=== PATIENT | female | born 1955 | race Caucasian/White ===

== ENCOUNTER 2016-09-17 23:58 | Inpatient (IN) | payer OTHER ==
[~2016-09-17] VITALS: Ht 152.4 cm; Wt 70.4 kg
--- NOTE | ~2016-09-17 | H ---
[facility] [place] [address] HISTORY AND PHYSICAL Name: ANDREA MARTE Room #: 409-P ADM IN M.R.#: [id number] Admission: 09/18/16 Attend Phys: Sheila Cabrera MD Discharge: Date of : 59 Report #: [id number] THIS REPORT FOR: //name// CC: Sheila Cabrera DATE OF SERVICE: 09/18/2016 CHIEF COMPLAINT: Intractable nausea and vomiting. HISTORY OF PRESENT ILLNESS: The patient is a 60-year-old female who resides within the secure unit at [facility]. She is ambulatory at baseline, but has chronic back pain requiring MS Contin 60 mg twice a day. Nursing staff reports that there were issues with her narcotics and had not received it for a day. On the day of admission, she reportedly had intractable nausea and vomiting and severe back pain. She was brought to [facility] Emergency Room for evaluation. Workup revealed partial small-bowel obstruction on CT of abdomen. She was admitted for further medical management. PAST MEDICAL HISTORY: Seizure disorder, gastroesophageal reflux disease without esophagitis, malignant neoplasm of the brain, status post surgical removal, chronic pain syndrome due to history of compression fractures involving T12, L1, L2 and dementia. ALLERGIES: No known drug allergies. MEDICATIONS: Colace 100 mg daily, dexamethasone 1 mg daily, diclofenac 50 mg every 8 hours as needed, famotidine 20 mg daily, Keppra 1000 mg b.i.d., Klonopin 1 mg every 12 hours, lacosamide 100 mg b.i.d., multivitamin 1 tablet daily, Namenda 10 mg b.i.d., oxycodone 5 mg q. 6 hours p.r.n., Dilantin 100 mg b.i.d., Risperdal 0.25 mg daily and 0.5 mg at bedtime, Tylenol 500 mg every 12 hours as needed, Zoloft 25 mg daily and MS Contin 60 mg q. 12 hours. FAMILY HISTORY: Noncontributory. SOCIAL HISTORY: The patient resides at [facility] within the secure unit. She does not use tobacco or alcohol. REVIEW OF SYSTEMS: GENERAL: The patient is forgetful. Needs assistance with activities of daily living, able to ambulate and feed herself. HEENT: Negative. CARDIAC: Negative. PULMONARY: Negative. GASTROINTESTINAL: As per history of present illness. GENITOURINARY: At times incontinent. [address] [address] HISTORY AND PHYSICAL Name: ANDREA MARTE Room #: 409-P [facility] IN [facility]#: [id number] Admission: 09/18/16 Attend Phys: Sheila Cabrera MD Discharge: Date of : 59 Report #: [id number] MUSCULOSKELETAL: Ambulates independently. LYMPHATICS: Negative. NEUROLOGIC: Forgetful due to underlying dementia. PHYSICAL EXAMINATION: GENERAL: The patient is a pleasant female lying in bed in no apparent distress and denies nausea at this time. VITAL SIGNS: Reveal temperature of 98.7, pulse of 79, respiratory rate 16, blood pressure 110/67. HEENT: Head is normocephalic, atraumatic. Pupils are equal and reactive. Extraocular muscles are intact. Oropharynx is moist. NECK: Supple. Trachea midline. LUNGS: Clear to auscultation. CARDIOVASCULAR: Regular rate and rhythm. ABDOMEN: Soft, nontender, nondistended with hypoactive bowel sound. SKIN: Warm and dry. Turgor adequate. LYMPHATICS: No cervical or axillary lymphadenopathy. NEUROLOGICAL: She is awake, alert, oriented only to self. Moves all extremities independent to command without focal neurologic deficit or lateralizing signs. LABORATORY DATA: Include potassium 2.9, glucose 131. WBC 13.1, hemoglobin 16.0 with normal differential. Urinalysis shows protein 1+, ketones trace, blood trace, WBC rare RBC none, bacteria few. RADIOGRAPHIC STUDIES: Include CT of abdomen and pelvis with findings of thickening of distal esophagus and hiatal hernia, which may represent chronic esophagitis, fluid filled bowel loops in upper left abdomen and fluid filled stomach. This may represent currently small-bowel obstruction or mild chronic ileus. Moderate amount of fluid is present in the colon. Findings represent mild enteritis, compression deformities at T12 and L1 levels appear chronic and there is large fat hernia through the canal is present in the right lower anterior abdominal wall. ASSESSMENT: 1. Partial small-bowel obstruction resulting in intractable nausea and vomiting. 2. Mild enteritis. 3. Gastroesophageal reflux disease with esophagitis. 4. Chronic back pain due to T12 and L1 compression fractures. 5. Seizure disorder. 6. Dementia. PLAN: Admission, continue IV fluids. We will start IV Flagyl and IV Cipro to treat underlying mild enteritis. She has had nausea and vomiting all morning. We will start her on clear liquids. We will resume MS Rock and all her other [facility] [address] [place] [address] HISTORY AND PHYSICAL Name: ANDREA MARTE Room #: 409-P [facility] IN .R.#: [id number] Admission: 09/18/16 Attend Phys: Sheila Cabrera MD Discharge: Date of : 59 Report #: [id number] home medications include those needed for seizures. We will also initiate DVT prophylaxis. By: [id number] Sheila Cabrera MD /nt
--- NOTE | ~2016-09-17 | EKG ---
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
--- NOTE | ~2016-09-17 | D ---
[facility] [address] [address] DISCHARGE SUMMARY Name: ANDREA MARTE Room #: 409-P [facility] IN .R.#: [id number] Admission: 09/18/16 Attend Phys: Sheila Cabrera MD Discharge: 09/20/16 Date of : 59 Report #: [id number] THIS REPORT FOR: //name// CC: [facility] Sheila Cabrera MD DATE OF SERVICE: 09/20/2016 SUMMARY HISTORY AND PHYSICAL: The patient is a 60-year-old female who reported intractable nausea and vomiting and severe back pain. There was a history of not having received her chronic MS Contin 60 mg twice daily. Nonetheless, she was brought to the Emergency Room where she was found to have a partial small-bowel obstruction on CT scan of the abdomen requiring admission for further evaluation and therapy. After more careful consideration, she appeared to have a mild enteritis and a partial small bowel obstruction. She had gastroesophageal reflux disease with enteritis. In addition, she has stable seizure disorder and dementia. Hospital Course: She was admitted with intravenous Flagyl and intravenous Cipro to treat her underlying enteritis and intravenous fluids to restore her fluid volume. Clear liquids were started in the next day, were tolerated well. Her MS Contin and other home medications including her seizure medications were all resumed. She did tolerate her clear liquids well, and on the second hospital day was already tolerating a soft diet. Her IV antibiotics were then switched to oral antibiotics, and the next hospital day, she was tolerating all of her medications well, drinking plenty of fluids, and also eating well. She had a normal bowel movement. Both she and her younger son were eager for her to return home. HOSPITAL COURSE: On the day prior to discharge, she was ambulatory around the hospital halls without difficulty. Her blood pressure at its lowest was 86/51 with a pulse of 61, respirations 16. Looking in previous hospital stay, she tolerated these low blood pressures well. She and her son wanted her to return to her shelter. She was not taking antihypertensive medications. Her potassium was 2.9 on admission and 3.7 after replacement at discharge. LABORATORY DATA: Her magnesium was low at 1.7 and normal at 1.9 at discharge. Her sodium was in the normal range, her creatinine was 0.6 on admission and 0.5 at discharge. Her BUN was 8 on admission and was 3 at discharge. Albumin was 4.[address] [address] DISCHARGE SUMMARY Name: ANDREA MARTE Room #: 409-P [facility] IN [facility]#: [id number] Admission: 09/18/16 Attend Phys: Sheila Cabrera MD Discharge: 09/20/16 Date of : 59 Report #: [id number] WBCs were 13,100 with a hemoglobin of 16.0 and segmented neutrophils of 79.8 on admission. At discharge, her WBCs had dropped sequentially to 6300, hemoglobin had dropped to 13.1 showing a response to her antibiotics as well as the effect of rehydration. Urinalysis showed a trace of ketones and blood with a few bacteria. CT scan of the abdomen and pelvis showed mild scarring in the lung bases, small cysts in both the right and the left kidneys without masses and without hydronephrosis, a moderate-sized hiatal hernia. The distal esophagus was mildly thickened, the stomach was fluid filled and the proximal small bowel loops were fluids filled as well most likely representing an ileus. A large hernia fat was present in the right inguinal canal without the presence of bowel loops. The hernia neck measured 14 mm. The uterus in average and ovaries were normal. . Chronic wedge deformities were present at T12 and L1. DISCHARGE DIAGNOSES: 1. Mild esophagitis and enteritis that responded to intravenous ciprofloxacin and metronidazole. 2. Dehydration with the hemoglobin dropping from 16 to 13.1 over the course of her hospital stay with rehydration. 3. Hiatal hernia. 4. A large fat hernia was present in right inguinal canal without the presence of bowel loops. Minimally displaced rib fractures were identified on the right side when compared with 04/26/2016. Left lower lobe atelectasis and pneumonia was unchanged from 04/26/2016 comparison film. The rib fractures were unchanged as well. 5. Dementia. 6. Stable seizure disorder. 7. Chronic back pain. 8. Chronic compression fractures confirmed at T12 and L1 by CT scanning. PLAN: The patient is discharged to return to [facility]. Her son is going to provide her with several large bottles of flavored Gatorade to continue oral rehydration after leaving the hospital. Ciprofloxacin 500 mg twice daily for 10 days and metronidazole 250 mg 4 times daily for 10 days. She is to continue her MS Contin 60 mg twice daily, oxycodone 5 mg every 6 hours as needed for breakthrough pain, docusate sodium 100 mg daily, multiple vitamins with iron, calcium and minerals, dexamethasone 1 mg daily, clonazepam 1 mg twice daily, phenytoin sodium 100 mg twice daily, Levetiracetam 1000 mg twice daily, memantine 10 mg twice daily, diclofenac 50 mg every 8 hours as needed for back pain, [id number] mg (Vimpat) twice daily, risperidone 0.25 mg once in the morning (the evening dose was discontinued), acetaminophen 500 mg every [address] [address] DISCHARGE SUMMARY Name: ANDREA MARTE Room #: 409-P [facility] IN M.R.#: [id number] Admission: 09/18/16 Attend Phys: Sheila Cabrera MD Discharge: 09/20/16 Date of : 59 Report #: [id number] hours, sertraline 25 mg once daily for depression. She is to get a CBC and a complete metabolic panel in 3-4 days. By: [id number] Alex Heredia MD /nt
[~2016-09-17 23:58] MED LIST: ACETAMINOPHEN325 M1 PO; APAP500 PO; CLONAZEPAM 1 MG1 M1 PO; COLACE100 MG PO; DEXAMETHASONE1 MG PO; DILANTIN100 MG PO; ESSENTIAL DAIL1 EACH PO; KEPPRA 500 MG500 M1 PO; KEPPRA1000 MG PO; LEVAQUIN 500 M500 M1 PO; MS CONTIN15 MG PO; NAMENDA 10 MG T10 MG PO; OXYCODONE HCL 55 MG PO; PEPCID20 MG PO; PHENYTEK300 MG PO; RISPERDAL1 MG/1 ML PO; RISPERIDONE0.5 MG PO; SERTRALINE HCL50 MG PO; VIMPAT50 MG PO
[2016-09-18 00:01] VITALS: BP 102/67
[2016-09-18 00:41] LABS: ABSOLUTE NEUTROPHILS 10.5 thou/uL (1.4-8.2); BASOPHILS 0.7 % (0.0-2.0); EOSINOPHILS 0.1 % (0.0-3.0); HEMATOCRIT 45.7 % (37.0-47.0); LYMPHOCYTES 12.5 % (24.0-44.0); MCH 32.3 pg (26.0-34.0); MCV 92.3 fL (80.0-100.0); MONOCYTES 6.9 % (1.0-8.0); PLATELET COUNT 185 thou/uL (150-400); POLYS 79.8 % (36.0-66.0); RBC 4.95 mil/uL (4.20-5.00); RDW 13.2 % (10.5-14.5); WBC 13.1 thou/uL (4.0-11.0)
[2016-09-18 00:46] LABS: MANUAL DIFF NO
[2016-09-18 00:56] LABS: ALBUMIN 4.3 g/dL (3.4-5.0); ALKALINE PHOSPHATASE 103 U/L (46-116); ANION GAP 13 mmol/L (7-16); BUN 8 mg/dL (7-18); CHLORIDE 97 mmol/L (98-107); CO2 26 mmol/L (21-32); CREATININE 0.6 mg/dL (0.6-1.0); GLUCOSE 131 mg/dL (74-106); SGOT 17 U/L (15-37); SGPT 35 U/L (30-65); SODIUM 136 mmol/L (136-145); TOTAL BILIRUBIN 0.6 mg/dL (<0.1-1.0); TOTAL PROTEIN 7.5 g/dL (6.4-8.2); TROPONIN-I < 0.04 ng/mL (<0.04-0.07)
[2016-09-18 01:00] LABS: CALCIUM 9.2 mg/dL (8.5-10.1)
[2016-09-18 01:01] LABS: POTASSIUM 2.9 mmol/L (3.5-5.1)
[2016-09-18] MEDS ORDERED: COLACE100 MG PO (01:08)
[2016-09-18] MEDS ORDERED: DICLOFENAC SODI25 MG (01:11)
[2016-09-18] MEDS ORDERED: VIMPAT100 MG (01:12)
[2016-09-18] MEDS ORDERED: [UNRECOGNIZED DRUG - OTHER] (01:13)
[2016-09-18] MEDS ORDERED: RISPERDAL0.5 MG (01:15)
[2016-09-18] MEDS ORDERED: RISPERDAL0.25 MG (01:15)
[2016-09-18] MEDS ORDERED: MAPAP500 MG (01:17)
[2016-09-18] MEDS ORDERED: ZOLOFT25 MG PO (01:18)
[2016-09-18 04:48] VITALS: BP 109/68
[2016-09-18 05:00] VITALS: BP 113/73
[2016-09-18 08:38] LABS: URINE BILIRUBIN NEGATIVE (Negative); URINE BLOOD TRACE (Negative); URINE COLOR YELLOW; URINE GLUCOSE-RANDOM* NEGATIVE (Negative); URINE KETONES TRACE (Negative); URINE LEUKOCYTES-REFLEX NEGATIVE (Negative); URINE PROTEIN (DIPSTICK) 1+ (Negative); URINE SPECIFIC GRAVITY <= 1.005 (1.003-1.035)
[2016-09-18 08:48] LABS: AMORPHOUS URATES Many /LPF (None Seen); CASTS None Seen /LPF (None Seen); SQUAMOUS 0-3 Few /LPF (0-3); URINE RBC None Seen /HPF (0-2); URINE WBC-REFLEX 0-5 Rare /HPF (0-5)
[2016-09-18 09:33] VITALS: BP 110/67
[2016-09-18 16:32] LABS: MAGNESIUM 1.7 mg/dL (1.8-2.4)
[2016-09-18 18:07] VITALS: BP 95/63
[2016-09-18 19:12] VITALS: BP 121/78
[2016-09-19 04:18] VITALS: BP 100/74
[2016-09-19 04:41] LABS: HEMATOCRIT 39.2 % (37.0-47.0); MCH 32.9 pg (26.0-34.0); MCV 94.1 fL (80.0-100.0); RBC 4.16 mil/uL (4.20-5.00); RDW 13.3 % (10.5-14.5); WBC 9.2 thou/uL (4.0-11.0)
[2016-09-19 04:53] LABS: HEMOGLOBIN 13.7 gm/dL (12.0-15.0)
[2016-09-19 04:57] LABS: CALCIUM 8.4 mg/dL (8.5-10.1); CREATININE 0.5 mg/dL (0.6-1.0)
[2016-09-19 08:55] VITALS: BP 86/44
[2016-09-19 15:57] VITALS: BP 84/57
[2016-09-19 19:50] VITALS: BP 80/43
[2016-09-20 05:02] LABS: HEMATOCRIT 37.6 % (37.0-47.0); HEMOGLOBIN 13.1 gm/dL (12.0-15.0); MCH 33.2 pg (26.0-34.0); MCHC 34.8 g/dL (28.0-37.0); MCV 95.2 fL (80.0-100.0); RBC 3.94 mil/uL (4.20-5.00); RDW 13.2 % (10.5-14.5); WBC 6.3 thou/uL (4.0-11.0)
[2016-09-20 05:15] LABS: CALCIUM 8.3 mg/dL (8.5-10.1); CREATININE 0.5 mg/dL (0.6-1.0); MAGNESIUM 1.9 mg/dL (1.8-2.4); POTASSIUM 3.7 mmol/L (3.5-5.1)
[2016-09-20 06:42] VITALS: BP 99/53
[2016-09-20 07:07] VITALS: BP 86/51
[2016-09-20] MEDS ORDERED: FLAGYL 250 MG250 MG PO (13:06)
[2016-09-20] MEDS ORDERED: CIPRO500 MG PO (13:06)
[2016-09-20] MEDS ORDERED: MS CONTIN60 MG PO (13:11)
== END 2016-09-20 14:10 | DRG 392 ==
LOC: ER 23:58 → EROBS 09-18 04:25 → 4N 09-18 05:01
PROVIDERS: Emergency Medicine; Internal Medicine
DX: K52.9 Noninfective gastroenteritis and colitis, unspecified (principal); K56.60 Unspecified intestinal obstruction; M48.55XA Collapsed vertebra, not elsewhere classified, thoracolumbar region, initial encounter for fracture; K21.0 Gastro-esophageal reflux disease with esophagitis; F03.90 Unspecified dementia, unspecified severity, without behavioral disturbance, psychotic disturbance, mood disturbance, and anxiety; G40.909 Epilepsy, unspecified, not intractable, without status epilepticus; E86.0 Dehydration; F17.210 Nicotine dependence, cigarettes, uncomplicated; G89.4 Chronic pain syndrome; Z87.81 Personal history of (healed) traumatic fracture; Z85.841 Personal history of malignant neoplasm of brain
CPT/HCPCS: 10790

== ENCOUNTER 2017-11-23 20:45 | Emergency (ER) | payer OTHER ==
[~2017-11-23] VITALS: Ht 167.6 cm; Wt 74.8 kg
[~2017-11-23 20:45] MED LIST changes: +CIPRO500 MG PO; +DICLOFENAC SODI25 MG; +FLAGYL 250 MG250 MG PO; +MAPAP500 MG; +MS CONTIN60 MG PO; +RISPERDAL0.25 MG; +RISPERDAL0.5 MG; +VIMPAT100 MG PO; +ZOLOFT25 MG PO; +[UNRECOGNIZED DRUG - OTHER]
[2017-11-23] MEDS ORDERED: CONSTULOSE10 GM/15 M PO (21:50)
[2017-11-23] MEDS ORDERED: MELATIN3 MG PO (21:50)
[2017-11-23] MEDS ORDERED: MOBIC15 MG PO (21:51)
[2017-11-23] MEDS ORDERED: ZANTAC 150MG T150 MG PO (21:52)
[2017-11-23] MEDS ORDERED: TYLENOL325 MG PO (21:53)
== END 2017-11-23 23:02 ==
LOC: ER 20:45
DX: M54.5 Low back pain (principal); G89.29 Other chronic pain; F17.210 Nicotine dependence, cigarettes, uncomplicated; Z87.311 Personal history of (healed) other pathological fracture; W18.39XA Other fall on same level, initial encounter; Y92.89 Other specified places as the place of occurrence of the external cause; Y93.89 Activity, other specified; Y99.8 Other external cause status

== ENCOUNTER 2018-04-22 19:42 | Emergency (ER) | payer OTHER ==
[~2018-04-22] VITALS: Ht 167.6 cm; Wt 68.0 kg
[~2018-04-22 19:42] MED LIST changes: +CONSTULOSE10 GM/15 M PO; +MELATIN3 MG PO; +MOBIC15 MG PO; +TYLENOL325 MG PO; +ZANTAC 150MG T150 MG PO
[2018-04-22] MEDS ORDERED: VITAMIN D2000 UNIT PO (20:17)
[2018-04-22 20:19] LABS: ABSOLUTE NEUTROPHILS 5.6 thou/uL (1.4-8.2); BASOPHILS 0.2 % (0.0-2.0); EOSINOPHILS 0.3 % (0.0-3.0); HEMATOCRIT 37.6 % (37.0-47.0); HEMOGLOBIN 13.1 gm/dL (12.0-15.0); LYMPHOCYTES 5.5 % (24.0-44.0); MCH 33.3 pg (26.0-34.0); MCHC 34.8 g/dL (28.0-37.0); MCV 95.6 fL (80.0-100.0); MONOCYTES 8.7 % (1.0-8.0); PLATELET COUNT 141 thou/uL (150-400); POLYS 85.3 % (36.0-66.0); RBC 3.94 mil/uL (4.20-5.00); RDW 13.2 % (10.5-14.5); WBC 6.6 thou/uL (4.0-11.0)
[2018-04-22 20:22] LABS: URINE BILIRUBIN NEGATIVE (Negative); URINE BLOOD 2+ (Negative); URINE CLARITY CLEAR; URINE COLOR YELLOW; URINE GLUCOSE-RANDOM* NEGATIVE (Negative); URINE KETONES TRACE (Negative); URINE PROTEIN (DIPSTICK) 1+ (Negative); URINE UROBILINOGEN 0.2 E.U./dl (0.2-1.0)
[2018-04-22 20:24] LABS: URINE LEUKOCYTES-REFLEX 2+ (Negative); URINE NITRITE-REFLEX POSITIVE (Negative)
[2018-04-22 20:29] LABS: MUCUS 0-3 Light strn/LPF (None Seen); SQUAMOUS 0-3 Few /LPF (0-3)
[2018-04-22 20:30] LABS: CASTS None Seen /LPF (None Seen); CRYSTALS None Seen /LPF (None Seen); URINE RBC 3-10 Few /HPF (0-2); URINE WBC-REFLEX >25 Many /HPF (0-5)
[2018-04-22 20:46] LABS: CREATININE 0.8 mg/dL (0.6-1.0); POTASSIUM 3.4 mmol/L (3.5-5.1)
[2018-04-22] MEDS ORDERED: KEFLEX500 M1 PO (21:15)
[2018-04-22 23:23] VITALS: BP 96/57
== END 2018-04-22 23:28 | disposition home or self-care (01) ==
LOC: ER 19:42
PROVIDERS: Emergency Medicine
DX: N39.0 Urinary tract infection, site not specified (principal); F17.210 Nicotine dependence, cigarettes, uncomplicated

== ENCOUNTER 2018-07-25 15:19 | Inpatient (IN) | payer OTHER ==
[~2018-07-25] VITALS: Ht 165.1 cm; Wt 81.6 kg
[~2018-07-25 15:19] MED LIST changes: +KEFLEX500 M1 PO; +VITAMIN D2000 UNIT PO
[2018-07-25 15:21] VITALS: BP 94/62
[2018-07-25 15:39] LABS: URINE BILIRUBIN NEGATIVE (Negative); URINE BLOOD NEGATIVE (Negative); URINE CLARITY SL CLOUDY; URINE COLOR YELLOW; URINE GLUCOSE-RANDOM* NEGATIVE (Negative); URINE KETONES TRACE (Negative); URINE LEUKOCYTES-REFLEX NEGATIVE (Negative); URINE NITRITE-REFLEX NEGATIVE (Negative); URINE PROTEIN (DIPSTICK) NEGATIVE (Negative); URINE SPECIFIC GRAVITY >= 1.030 (1.005-1.035); URINE UROBILINOGEN 0.2 E.U./dl (0.2-1.0)
[2018-07-25 16:39] LABS: ABSOLUTE NEUTROPHILS 3.6 thou/uL (1.4-8.2); BASOPHILS 1.1 % (0.0-2.0); EOSINOPHILS 2.2 % (0.0-3.0); HEMATOCRIT 39.7 % (37.0-47.0); HEMOGLOBIN 13.6 gm/dL (12.0-15.0); LYMPHOCYTES 30.1 % (24.0-44.0); MCH 32.4 pg (26.0-34.0); MCHC 34.2 g/dL (28.0-37.0); MCV 94.7 fL (80.0-100.0); MONOCYTES 8.5 % (1.0-8.0); PLATELET COUNT 156 thou/uL (150-400); POLYS 58.1 % (36.0-66.0); RBC 4.19 mil/uL (4.20-5.00); WBC 6.3 thou/uL (4.0-11.0)
[2018-07-25 16:46] LABS: CALCIUM 8.7 mg/dL (8.5-10.1); CREATININE 1.5 mg/dL (0.6-1.0); POTASSIUM 3.7 mmol/L (3.5-5.1)
[2018-07-25 17:36] VITALS: BP 122/79
[2018-07-25 19:24] VITALS: BP 138/98
--- NOTE | 2018-07-26 03:28 | NUR ---
PT WAS ADMITTED TO THE THE UNIT FROM THE ER IN A FAIR CONDITION.ASSESSMENT COMPLETED.PT ALERT TO SELF,CONFUSED,IMPULSIVE AND JUMPING OUT OF BED PT PULLED HER IV ACCESS IMMEDIATELY SHE WAS TRANSFERRED TO HER BED. NEW IV STARTED ON HER RFA.DR BUSTAMANTE HERE TO SEE PT,ORDERS NOTED AND CARRIED OUT.UP WITH ASSIST X1 TO BSC,UNSTAEDY ON HER FEET.ABRAISION NOTED ON HER NOSE FROM HER FALL.IVF INFUSING ORDERED.PT RESTING ON HER BED AT THIS TIME BREATHING NORMAL AND UNLABORED.
[2018-07-26 06:37] VITALS: BP 114/76
[2018-07-26 07:47] LABS: CALCIUM 8.2 mg/dL (8.5-10.1); POTASSIUM 4.4 mmol/L (3.5-5.1)
[2018-07-26 07:51] LABS: CREATININE 0.4 mg/dL (0.6-1.0)
[2018-07-26 08:40] VITALS: BP 110/67
[2018-07-26 16:58] VITALS: BP 91/60
--- NOTE | 2018-07-26 17:49 | NUR ---
PT ADMITTED RELATED TO [facility]. CM REVIEWED CHART AND SPOKE WITH CARE TEAM. CHART INDICATED THAT PT RESIDES IN LTC AT [facility]. CM MET WITH PT AT BEDSIDE THIS DAY. PT IS ORIENTED TO SELF ONLY. PT WAS ABLE TO CONFIRM THAT SHE RESIDES AT [facility]. WHEN ASKED HOW PT GOT AROUND AT THE FACILITY PT INDICATED SHE HAD BEEN AMBULATORY WITHOUT AN ASSISTIVE DEVICE. CM CALLED PT'S DPOA DTR IN [place] AND HER NUMBER INDICATED IT WAS BUSY MULTIPAL TIMES. CM CALLED PT'S SON SOBIA AND HE ASKED CM CALL BACK LATER. CM TO FOLLOW UP WITH FAMILY AND FACILITY FOR MORE ACCURATE PLOF. OF RIGHT NOW IT IS ANTIPCATED THAT PT WILL RETURN TO [facility] ONCE MEDIALLY STABLE. CM TO FOLLOW INDICATED WITH DC PLANNING.
--- NOTE | 2018-07-26 17:53 | NUR ---
ASSUMED CARE AT 0700, SHIFT ASSESMENT DONE, MEDS GIVEN, VSS. PATIENT WAS ANXIOUS AND TRYING TO JUMP OUT OF THE BED. PRN LORAZEPAM GIVEN. STILL ANXIOUS AND ASKING IF SHE CAN GO BACK HOME. APPETITE VERY POOR. REPORTED PAIN, SCHEDUELD PAIN MEDS GIVEN. WILL CONTINUE TO ASSESS AND ASSISIT WITH ADLs NEEDED.
--- NOTE | 2018-07-26 19:22 | NUR ---
PATIENT WAS ACTING INCREASINGLY AGITATED AND CONFUSED, TRYING TO CLIMB OUT OF THE BED. DR BUSTAMANTE WAS CALLED AND RECEIVED ORDERS FOR 8 MG OF MORPHINE, ONE TIME. MEDICATION WAS GIVEN AT 1845.
[2018-07-26 20:00] VITALS: BP 105/78
--- NOTE | 2018-07-27 04:09 | NUR ---
ASSUMED PT CARE 1899. PT ALERT TO SELF ONLY. VSS. PT REPORTS PAIN TO HIP AND BACK, SEE EMAR. PT IMPULSIVE AND CAN BECOME COMBATIVE AT TIMES. DR. BUSTAMANTE CONTACTED, NEW ORDERS IMPLEMENTED. PT CONFUSED, REORIENTED AND REDIRECTED FREQUENTLY. FOLLOWS DIRECTIONS, AND IS COOPERATIVE. FALL RISK PRECAUTIONS IN PLACE, PT IN ROOM NEAR NURSES STATION. PT CALL LIGHT AND PERSONAL BELONGINGS WITHIN REACH. WILL CONTINUE POC UNTIL EOS.
[2018-07-27 06:00] VITALS: BP 134/78
[2018-07-27 06:18] LABS: CALCIUM 8.1 mg/dL (8.5-10.1); CREATININE 0.4 mg/dL (0.6-1.0); POTASSIUM 3.9 mmol/L (3.5-5.1)
[2018-07-27 08:02] VITALS: BP 121/71
[2018-07-27] MEDS ORDERED: MS CONTIN 60 MG60 M1 PO (09:26)
[2018-07-27] MEDS ORDERED: SEROQUEL 25 MG25 M1 PO (09:27)
--- NOTE | 2018-07-27 10:31 | NUR ---
PT, DISCHARGING TODAY BACK TO [facility]. FAXED DC ORDERS/SUMMARY TO FACILITY SPOKE WITH AALIYAH IN ADM. SHE RECEIVED ORDERS AND TRANSPORT ARRANGED FOR 1330 VIA [facility] [facility]. NOTIFIED SON (LIANG) OF DISCHARGE AND TIME OF TRANSPORT UNIT NOTIFIED AND CHART COPY PER US. RN TO CALL REPORT TO [phone].
--- NOTE | 2018-07-27 11:27 | NUR ---
CALLED REPORT TO [facility] SPOKE WITH LILIAN / NURSE. PT DRESSED AND BELONGINGS PACKED TO BE SENT WITH PATIENT. PT HAS INCREASED ANIETY AT TIMES. LIVES IN [facility] AT [facility]. IV ACSESS DCD,
--- NOTE | 2018-07-27 13:29 | NUR ---
PATIENT DISCHARGED AT THIS TIME ALL BELONGINGS SENT WITH PATIENT. DISCHARGE PAPERS INCLUDINGS RX SENT WITH PATIENT.
== END 2018-07-27 13:43 | DRG 683 ==
LOC: ER 15:19 → EROBS 17:19 → 4E 19:25
PROVIDERS: Emergency Medicine; ADMIT Internal Medicine
DX: N17.9 Acute kidney failure, unspecified (principal); F03.91 Unspecified dementia, unspecified severity, with behavioral disturbance; F11.20 Opioid dependence, uncomplicated; F41.9 Anxiety disorder, unspecified; F31.9 Bipolar disorder, unspecified; E86.9 Volume depletion, unspecified; G89.29 Other chronic pain; M54.9 Dorsalgia, unspecified; Z79.899 Other long term (current) drug therapy
CPT/HCPCS: 10084